=== PATIENT | male | born 1945 | race Caucasian/White ===

== ENCOUNTER 2019-05-20 11:30 | Day surgery (SDC) | payer MEDICARE ==
[2019-05-18 14:09] VITALS: BMI 35.6
[~2019-05-20 11:30] MED LIST: ALPRAZolam 0.25 MG TAB PO PRN; ALPRAZolam 0.5 MG TAB PO PRN; ASPIRIN 325 MG TAB PO STA; ATORVASTATIN 80 MG TAB PO STA; NITROGLYCERIN SL TABS 0.4 MG TAB SUBLINGUAL PRN; SODIUM CHLORIDE 0.9% 1,000 ML in EMPTY BAG 1 BAG IV ONE
[2019-05-20] MEDS ORDERED: SODIUM CHLORIDE 0.9% 1,000 ML IV ONE (13:10)
[2019-05-20 13:39] LABS: INR 1.3 (<1.2); Prothrombin Time 13.7 sec (9.0-12.0)
[2019-05-20] MEDS ORDERED: HEPARIN SODIUM 1,000 UN/ML (10ML VL) ONE (13:53)
[2019-05-20] MEDS ORDERED: LIDOCAINE 1% INJ 10MG/ML (20 ML MDV) ONE (13:53)
[2019-05-20] MEDS ORDERED: VERAPAMIL 2.5 MG/ML 2 ML AMP ONE (13:53)
[2019-05-20] MEDS ORDERED: fentaNYL (PF) 50 MCG/ML 2 ML AMP ONE (13:53)
[2019-05-20] MEDS ORDERED: fentaNYL (PF) 50 MCG/ML 2 ML AMP IVP ONE (14:11)
[2019-05-20] MEDS ORDERED: LIDOCAINE 1% INJ 10MG/ML (20 ML MDV) SQ ONE (14:21)
[2019-05-20] MEDS ORDERED: VERAPAMIL SYRINGE (5 MG/10 ML) INTRAARTER ONE (14:23)
[2019-05-20] MEDS ORDERED: BIVALIRUDIN BOLUS 250 MG/50 ML IV ONE (14:42)
[2019-05-20] MEDS ORDERED: CLOPIDOGREL 75 MG TAB ONE (14:43)
[2019-05-20] MEDS ORDERED: BIVALIRUDIN 250 MG in SODIUM CHLORIDE 0.9% 50 ML IV ONE (14:43)
[2019-05-20] MEDS ORDERED: IOPAMIDOL-370 125ML BTL INJ ONE ×2 (14:44→15:08)
[2019-05-20] MEDS ORDERED: CLOPIDOGREL 75 MG TAB PO ONE (14:46)
[2019-05-20] MEDS ORDERED: NITROGLYCERIN 1000MCG/10ML SYRINGE INTRACORON ONE (14:52)
[2019-05-20] MEDS ORDERED: MAG HYDROX/AL HYDROX/SIMETH 30 ML CUP PO PRN (15:18)
[2019-05-20] MEDS ORDERED: ZOLPIDEM 5 MG TAB PO PRN (15:18)
[2019-05-20] MEDS ORDERED: NITROGLYCERIN SL TABS 0.4 MG TAB SUBLINGUAL PRN (15:18)
[2019-05-20] MEDS ORDERED: RX INFO: IV CONTRAST WAS GIVEN 1 EACH MISC MISCELLANE PRN (15:18)
[2019-05-20] MEDS ORDERED: ATROPINE SULFATE 0.1 MG/ML 10ML SYRINGE IV PRN (15:18)
[2019-05-20] MEDS ORDERED: SODIUM CHLORIDE 0.9% 1,000 ML IV SCH (15:30)
--- NOTE | 2019-05-20 16:27 | PTCA ---
PERCUTANEOUSTRANS CORORONARY ANGIOGRAPHY Mr. Fulton is a 74-year-old male with a known history of chronic tobacco use and chronic persistent atrial fibrillation who presented with symptoms of chest discomfort and abnormal stress test. He underwent cardiac catheterization that revealed evidence of severe stenosis involving the right coronary artery. In view of that, recommendation was made regarding angioplasty and stenting. The procedure, its risks and complications were discussed with the patient, who was in full understanding and agreement. PROCEDURE: A 6-Polish FR4 guiding catheter was introduced in the system. After cannulating the right coronary ostium, a 0.014 balanced medium-weight J-wire was advanced across the lesion and positioned distally. Following that, a 2.25 x 12 mm Trek balloon was advanced and one inflation was performed at a maximum of 8 atmospheres, with rupture of the balloon. The balloon was removed and a 2.5 x 23 mm Xience Eyl stent was deployed and post dilated at 16 atmospheres. Following that, the balloon was removed and a 2.75 x 8 mm Xience Ely stent was deployed proximal to the first one and post dilated at 16 atmospheres. Following that, that balloon was advanced to the first stent and inflations were done at maximum of 12 atmospheres. After the last inflation, after appropriate wait, the balloon and the guidewire were withdrawn back into the guiding catheter. Images were obtained and repeated. Those images revealed stable successful stenting. At that point, the guiding catheter, the balloon and the guidewire were removed. Left ventricular end-diastolic pressures were calculated. Following that, catheter and sheaths were removed. Hemostasis was obtained with deployment of a TR band. There was no immediate complication. Patient was returned to his room in stable condition. FINDINGS: Successful stenting of the long segment of the mid right coronary artery with reduction of stenosis from 95% to 0%. RECOMMENDATIONS: Patient to be continued on aspirin, Plavix. Subsequently the aspirin will be stopped and he will be continued on anticoagulation and the Plavix because of his known chronic persistent atrial fibrillation. The importance of smoking cessation was discussed with the patient. Those findings and recommendations were discussed with the patient and his family, and they are in full understanding and agreement. Duration of procedure was 52 minutes. MMFREDOL / IJN: [id number] /
--- NOTE | 2019-05-20 16:30 | LTR ---
May 20, 2019 To: Dr. Zohra Dial RE: Monty Fulton (41) Dear Dr. Dial, I had the pleasure of performing cardiac catheterization and coronary angioplasty and stenting on Mr. Fulton at [facility] on May 20, and a full copy of the procedure note will be forwarded to you. In brief, he was found to have critical stenosis involving the mid right coronary artery. He underwent successful stenting of that vessel using a drug-eluting stent. I am hopeful that this procedure will stabilize his status. Thank you again for allowing me to participate in his care. Please feel free to call me for any question. Sincerely yours, Bob Kimbrough MD MMFREDOL / MARLENEN: [id number] /
--- NOTE | 2019-05-20 16:45 | CC ---
CARDIAC CATHETERIZATION REPORT Mr. Fulton is a 74-year-old male with a known history of chronic persistent atrial fibrillation and chronic tobacco use who presented with symptoms of chest discomfort and an abnormal stress test with inferior wall ischemia. In view of that, recommendation was made regarding cardiac catheterization. The procedure, its risks and complications were discussed with the patient, who was in full understanding and agreement. PROCEDURE: Patient was brought to the dentures lab technician in a fasting, semi-sedated state after receiving fentanyl and Benadryl and achieving a moderate conscious sedated state. Using Xylocaine anesthesia and Seldinger technique, a 6-Ecuadorean sheath was introduced in the right radial artery. Selective right and left coronary angiography was performed using 5-Ecuadorean 3.5 bend right Nicole and 4 bend left Nicole catheters. Multiple views were taken of the coronary arteries, including hemiaxial views. Following that, angioplasty and stenting was performed. Following that, a 5-Ecuadorean tight pigtail catheter was introduced into the left ventricle and pressures were calculated. Following that, catheter and sheath were removed. Hemostasis was obtained with deployment of a TR band. There was no immediate complication. Patient was returned to his room in stable condition. Of note, the patient received intra-arterial verapamil. FINDINGS: FLUOROSCOPY: There was severe calcification involving all the coronary arteries. LEFT MAIN: This is a short-sized vessel bifurcating into left circumflex and left anterior descending artery. Left main coronary artery has a 10% to 20% plaque without any evidence of high-grade stenosis. LEFT ANTERIOR DESCENDING ARTERY: This is a large-sized vessel reaching toward the apex with a wrap around the apex segment giving rise to 3 small diagonal branches. The left anterior descending artery is calcified throughout its course and the proximal segment has 10% to 20% plaque. In the mid segment there is a 50% stenosis. The rest of the vessel has no high-grade stenosis. LEFT CIRCUMFLEX: This is a nondominant vessel, large in caliber, giving rise to 2 obtuse marginal branches. The proximal segment of the left circumflex has 20% plaque. The second obtuse marginal branch distally has an area of stenosis of 60% to 70%. Beyond that it is small in caliber. RIGHT CORONARY ARTERY: This is a large dominant vessel bifurcating into PDA and posterolateral segment and branches, calcified. The proximal segment has a 30% to 40% plaque. The mid right coronary artery has a 95% stenosis, distally bifurcating into PDA, posterolateral segment and branches that has no evidence of high-grade stenosis. LEFT VENTRICULOGRAM: Left ventriculogram was not performed. HEMODYNAMICS: There was no gradient across the aortic valve. The left ventricular end-diastolic pressure was 12 to 14 mmHg. CONCLUSION: 1. Critical stenosis in the mid right coronary artery. 2. Calcified coronary arteries. 3. Moderate disease in the left anterior descending and left circumflex. RECOMMENDATIONS: In view of findings and anatomy, I have recommended proceeding with angioplasty and stenting of the right coronary artery. The procedure, its risks and complications were discussed with the patient, who is in full understanding and agreement. MMODL / IJN: [id number] /
[2019-05-20] MEDS ORDERED: ATORVASTATIN 80 MG TAB PO SCH (21:00)
[2019-05-21 06:00] LABS: African American GFR (CKD) >90 (>60 ml/min/1.73 sqM); Anion Gap 7 mmol/L; Blood Urea Nitrogen 15 mg/dL (9-20); Calcium 9.3 mg/dL (8.4-10.2); Carbon Dioxide 25 mmol/L (22-30); Chloride 107 mmol/L (98-107); Glucose 124 mg/dL (74-99); Magnesium 1.8 mg/dL (1.6-2.3); Non-African American GFR(CKD) 88 (>60 ml/min/1.73 sqM); Potassium 4.3 mmol/L (3.5-5.1); Sodium 139 mmol/L (137-145)
[2019-05-21 08:10] VITALS: BP 127/75; PULSE 78; RESP 20; TEMP 97.7
[2019-05-21] MEDS ORDERED: ASPIRIN 81 MG PO SCH (09:00)
[2019-05-21] MEDS ORDERED: FINASTERIDE 5 MG TAB PO SCH (09:00)
[2019-05-21] MEDS ORDERED: ATENOLOL 50 MG TAB PO SCH (09:00)
[2019-05-21] MEDS ORDERED: DOXAZOSIN 4 MG TAB PO SCH (09:00)
--- NOTE | 2019-05-21 09:37 | PN ---
PROGRESS NOTE Mr. Fulton is a 74-year-old male with known history of chronic persistent atrial fibrillation who presented with an abnormal myocardial perfusion imaging, underwent cardiac catheterization, was found to have significant obstructive disease involving the right coronary artery underwent successful stenting of that vessel yesterday. He is doing well this morning. He is denying any chest pain. His breathing has been stable. He denies any dizziness or palpitation. He denies any nausea or vomiting. He continued to be on aspirin 81 mg daily, Plavix 75 mg daily, Eliquis 5 mg twice a day, Lipitor 80 mg daily, atenolol 100 mg daily, doxazosin 4 mg daily, finasteride 5 mg daily. PHYSICAL EXAMINATION: Blood pressure 127/70 with the heart rate in the 70s. LUNGS: Clear. HEART: Irregular, irregular. S1, S2. No S3. No rub. ABDOMEN: Soft, nontender. EXTREMITIES: No edema. Right radial pulse intact. EKG revealed atrial fibrillation with no acute changes. LAB DATA: Lab data revealed BUN and creatinine 15 and 0.78. Potassium 4.3. IMPRESSION: 1. Status post stenting of the right coronary artery. 2. Chronic persistent atrial fibrillation. 3. Chronic tobacco use. 4. Hyperlipidemia. RECOMMENDATION: Patient will be discharged home today and followed as an outpatient. MMODL / IJN: [id number] /
[2019-05-21] MEDS ORDERED: CLOPIDOGREL 75 MG TAB PO SCH (15:19)
[2019-05-21] MEDS ORDERED: APIXABAN 5 MG TAB PO SCH (21:00)
--- NOTE | 2019-05-25 08:30 | CDI ---
Outpatient Documentation Clarification Form Date : 05/25/19 CDS/Director Of Field Coordination Name: Vanesa Young Phone: If any questions, call [facility] at [phone] Patient Name. Monty Fulton Account Number: [id number] Admit Date: 05/20/19 Discharge Date: 05/21/19 ATTENTION: The [facility] Coding staff appreciate your assistance in clarifying documentation. Please respond to the clarification below the line at the bottom and electronically sign. The [facility] Coding Staff will review the response and follow-up if needed. Please Note: Queries are made part of the Legal Health Record. If you have any questions, please contact the Park Warden. Dear Dr. Kimbrough, Please provide clarification as to the type of atrial fibrillation for this patient. On the H&P in the first paragraph, persistent atrial fibrillation is documented. Then, also on the H&P, under Impression and Plan number 2, permanent atrial fibrillation is documented. Then finally on the cardiac catheterization report in the first paragraph, Chronic persistent atrial fibrillation is documented. Please clarify. Thank you for your kind consideration. Chronic persistent atrial fibrillation MTDD
== END 2019-05-21 10:41 | disposition home or self-care (01) ==
LOC: CATHCVL 11:30 → 3SCARD 16:42 → CATHCVL 05-21 10:41
PROVIDERS: ATTEND Internal Medicine Interventional Cardiology
DX: I25.10 Atherosclerotic heart disease of native coronary artery without angina pectoris (principal); I25.84 Coronary atherosclerosis due to calcified coronary lesion; I48.19 Other persistent atrial fibrillation; E78.5 Hyperlipidemia, unspecified; F17.290 Nicotine dependence, other tobacco product, uncomplicated; Z79.01 Long term (current) use of anticoagulants; Z79.899 Other long term (current) drug therapy
CPT/HCPCS: 93458; 85347; 80048; 83735; 85610; C9600; C1769 ×2; C1887; C1725; C1874; S0138; J2001; J3010; J0583; Q9967